=== PATIENT | female | born 1980 | race Two or more races ===

== ENCOUNTER 2018-02-01 18:35 | Emergency (ER) | payer MEDICAID ==
[~2018-02-01] VITALS: Ht 170.2 cm; Wt 61.2 kg
[2018-02-01 18:37] VITALS: BP 94/60
[2018-02-01] MEDS ORDERED: LIDOCAINE-MPF 1%, 5ML INFIL ONE (19:30)
== END 2018-02-01 21:21 | disposition home or self-care (01) ==
LOC: ED 21:10
DX: K04.7 Periapical abscess without sinus (principal); K02.9 Dental caries, unspecified
CPT/HCPCS: 99283